=== PATIENT | male | born 1970 | race Caucasian/White ===

== ENCOUNTER 2016-09-06 08:32 | Day surgery (SDC) | payer MEDICARE ==
[2016-09-06] MEDS ORDERED: MIDAZOLAM HCL 2MG/2ML VIAL IV ONE (15:02)
[2016-09-06] MEDS ORDERED: LIDOCAINE 2% MDV (20MG/ML) 20ML VIAL IV ONE (15:02)
[2016-09-06] MEDS ORDERED: PROPOFOL 10 MG/ML VIAL IV ONE (15:02)
--- NOTE | 2016-09-09 13:12 | Operative Note ---
DATE OF SURGERY: 09/06/2016 REFERRING PHYSICIAN: Kvng Sykes D.O. PROCEDURE: COLONOSCOPY to the cecum with cold biopsy forceps polypectomy x 2. Surgeon: Evert Vazquez D.O. Indication: Intermittent bright red rectal bleeding. The patient also had a prior history of a colon polyp years ago. Colonoscopy is repeated at this time for further evaluation. Intravenous sedation was administered by the Department of Anesthesiology and included Diprivan titrated to effect. PROCEDURE: Following informed consent from this alert individual, including a discussion of the risks and benefits of the procedure and an opportunity for the patient to ask questions, the patient was in the left lateral decubitus position. A digital rectal examination was performed. No abnormalities were noted. Following this, the Olympus PCF-180 video colonoscope was inserted into the rectum without resistance. The rectal mucosa had a normal appearance, with normal folds and distensibility. The colonoscope was advanced up through the colon to the level of the cecum without much difficulty. Throughout the bowel the mucosa appeared normal, folds were normal, bowel was fairly distensible. The cecum was defined by noting the appendiceal orifice and ileocecal valve. Retroflexion in the cecum was endoscopic unremarkable. From the base of the cecum the colonoscope was then withdrawn. In the mid ascending colon was a diminutive 3 mm polyp noted which was removed with cold biopsy forceps. In the descending colon there was suggestion of a polyp although this was not perfectly clear. Biopsy of the suspicious area was taken for further evaluation. At most it measured 4 mm in size. No other abnormalities were detected until the rectum was reached. Retroflexion in the rectum revealed small internal hemorrhoids with pectenitis. The endoscope was straightened and withdrawn. The colon preparation was good. The patient tolerated the procedure well and was returned to the Recovery Area in stable condition. IMPRESSION: 1. A 3 mm polyp removed from the ascending colon with biopsy forceps. 2. Possible small polyp noted in the descending colon, also removed with biopsy forceps. 3. Pectenitis with small internal hemorrhoids. RECOMMENDATIONS: The patient was advised he should receive a copy of his pathology report at home in the next 2 to 3 weeks. If not, he was asked to call my office to review results of testing today. Further recommendations forthcoming pending those results. Followup also will be with Dr. Sykes. As always, thank you for allowing me to participate in the care of your patient. Evert Vazquez DO CC: Patricia AHMADI
== END 2016-09-06 10:10 | disposition home or self-care (01) ==
LOC: HOP 08:32
PROVIDERS: ATTEND Internal Medicine Gastroenterology
DX: D12.2 Benign neoplasm of ascending colon (principal); K63.5 Polyp of colon; K64.8 Other hemorrhoids; E11.9 Type 2 diabetes mellitus without complications; Z79.84 Long term (current) use of oral hypoglycemic drugs